=== PATIENT | male | born 1940 | race Caucasian/White ===

== ENCOUNTER 2016-11-06 11:28 | Emergency (ER) | payer MEDICARE, BC ==
[2016-11-06 12:22] LABS: #Basophils 0.1 thou/uL (0.0-0.2); #Eosinphils 0.1 thou/uL (0.0-0.7); #Lymphocytes 1.6 thou/uL (1.20-3.40); #Monocytes 0.7 thou/uL (0.11-0.59); #Neutrophils 6.9 thou/uL (1.40-6.50); %Basophils 0.5 % (0.0-1.0); %Eosinophils 0.7 % (0.0-10.0); %Lymphocytes 16.9 % (21.0-51.0); %Monocytes 7.3 % (0.0-10.0); %Neutrophils 74.5 % (42.0-75.0); Hemoglobin 15.8 g/dL (14.0-18.0); Mean Corpuscular HGB CONC 34.4 g/dL (32.0-36.0); Mean Corpuscular Hemoglobin 31.8 pg (27.0-31.0); Mean Corpuscular Volume 92.6 fl (80.0-94.0); Mean Platelet Volume 8.1 fL (7.4-10.4); Platelet Count 162 thou/uL (130-400); RBC Distribution Width 11.1 % (11.5-14.5); Red Blood Cell (RBC) Count 4.96 mill/uL (4.70-6.10); White Blood Cell (WBC) Count 9.3 thou/uL (4.8-10.8)
[2016-11-06 12:28] LABS: INR-International Normal Ratio 1.1; PTT 35.7 SEC (22.9-36.1); Prothrombin Time 13.8 SEC (12.0-14.7)
[2016-11-06 12:37] LABS: ALT (SGPT) 21 U/L (8-55); AST (SGOT) 21 U/L (5-34); Albumin 4.3 g/dL (3.4-4.8); Alkaline Phosphatase 71 U/L (40-150); Anion Gap 18 mmol/L (10-20); BUN (Urea Nitrogen) 18 mg/dL (8.4-25.7); Calc. Creatinine Clearance 0 mL/min (70-130); Calcium 9.3 mg/dL (7.8-10.44); Carbon Dioxide 22 mmol/L (23-31); Chloride 100 mmol/L (98-107); Estimated GFR-MDRD 55; Globulin 2.6 g/dL (2.4-3.5); Glucose 152 mg/dL (83-110); Potassium 3.5 mmol/L (3.5-5.1); Protein, Total 6.9 g/dL (5.8-8.1); Sodium 136 mmol/L (136-145)
[2016-11-06 12:40] LABS: CKMB 3.5 ng/mL (0-6.6)
[2016-11-06 13:01] LABS: CK (CPK) 143 U/L (30-200)
--- NOTE | 2016-11-06 14:11 | CT ---
CT HEAD NONCONTRAST: HISTORY: Altered mental status. Left-sided weakness. FINDINGS: There is no evidence of acute intracranial hemorrhage or infarct. The ventricles appear normal in s ize, shape, and position. There is no mass effect or shift of midline structures. IMPRESSION: No acute intracranial abnormalities are demonstrated on noncontrast CT head. Findings were called to Dr. Conti in the [facility] at 12:12 hours. CODE JESSICA POS: JANESSA
--- NOTE | 2016-11-06 14:18 | RAD ---
PORTABLE CHEST: HISTORY: Left-sided numbness with slurred speech. FINDINGS: The lungs are clear. No evidence of infiltrate or vascular congestion. Heart size is within the no rmal range. Postop sternotomy change. IMPRESSION: No acute abnormality identified. POS: JANESSA
== END 2016-11-06 14:54 | disposition short-term general hospital (02) ==
LOC: NAV ERS 11:28
DX: R29.810 Facial weakness (principal); R47.81 Slurred speech; I25.2 Old myocardial infarction; I10 Essential (primary) hypertension; F17.210 Nicotine dependence, cigarettes, uncomplicated; Z79.82 Long term (current) use of aspirin; Z79.899 Other long term (current) drug therapy; Z86.73 Personal history of transient ischemic attack (TIA), and cerebral infarction without residual deficits
CPT/HCPCS: 36416; 70450; 71010; 80053; 82553; 84484; 85025; 85610; 85730; 93005

== ENCOUNTER 2020-07-29 15:32 | Emergency (ER) | payer MEDICARE, BC ==
[2020-07-29 16:07] LABS: #Basophils 0.1 thou/uL (0.0-0.2); #Lymphocytes 0.9 thou/uL (1.20-3.40); #Monocytes 1.2 thou/uL (0.11-0.59); #Neutrophils 8.8 thou/uL (1.40-6.50); %Basophils 1.1 % (0.0-1.0); %Eosinophils 0.1 % (0.0-10.0); %Lymphocytes 8.2 % (21.0-51.0); %Monocytes 10.9 % (0.0-10.0); %Neutrophils 79.7 % (42.0-75.0); Hemoglobin 15.5 g/dL (14.0-18.0); Mean Corpuscular Hemoglobin 31.3 pg (27.0-31.0); Mean Platelet Volume 7.2 fL (7.4-10.4); Platelet Count 198 thou/uL (130-400); RBC Distribution Width 12.5 % (11.5-14.5); Red Blood Cell (RBC) Count 4.97 mill/uL (4.70-6.10)
[2020-07-29 16:19] LABS: ALT (SGPT) 25 U/L (8-55); AST (SGOT) 16 U/L (5-34); Albumin 4.5 g/dL (3.4-4.8); Alkaline Phosphatase 98 U/L (40-110); Anion Gap 19 mmol/L (10-20); BUN (Urea Nitrogen) 26 mg/dL (8.4-25.7); Bilirubin, Total 0.6 mg/dL (0.2-1.2); Calc. Creatinine Clearance 0 mL/min (70-130); Calcium 9.5 mg/dL (7.8-10.44); Carbon Dioxide 27 mmol/L (23-31); Chloride 101 mmol/L (98-107); Globulin 2.4 g/dL (2.4-3.5); Glucose 223 mg/dL (83-110); Potassium 4.2 mmol/L (3.5-5.1); Protein, Total 6.9 g/dL (5.8-8.1); Sodium 143 mmol/L (136-145)
[2020-07-29] MEDS ORDERED: Albuterol Sulfate 2.5 mg/0.5 ml Neb ONE (16:21)
[2020-07-29] MEDS ORDERED: Azithromycin 500 MG VIAL ONE (17:33)
[2020-07-29] MEDS ORDERED: Sodium Chloride 0.9% 100 ML ONE (17:33)
[2020-07-29] MEDS ORDERED: Acetaminophen 500 MG TAB ONE (17:58)
[2020-07-29] MEDS ORDERED: Cyclobenzaprine 10 MG TAB ONE (18:22)
== END 2020-07-29 18:36 | disposition home or self-care (01) ==
LOC: NAV ERS 15:32
DX: J44.1 Chronic obstructive pulmonary disease with (acute) exacerbation (principal); G70.01 Myasthenia gravis with (acute) exacerbation; I10 Essential (primary) hypertension; F17.210 Nicotine dependence, cigarettes, uncomplicated; Z79.51 Long term (current) use of inhaled steroids; Z79.899 Other long term (current) drug therapy
CPT/HCPCS: 71045; 80053; 83880; 84484; 85025; 93005; 94640; 96365; J0456; J3490; J7611; J7620